=== PATIENT | female | born 1940 | race Caucasian/White ===

== ENCOUNTER 2018-10-09 09:20 | Emergency (ER) | payer MEDICARE ==
[2018-10-09 09:34] VITALS: BP 172/77
--- NOTE | 2018-10-09 09:54 | UC ---
Abdominal Pain Female HPI - HPI Summary HPI Summary: 78 year old female who has had upper abdominal pain over the past 24 hours with dry heaves, no diarrhea. Patient is an insulin-dependent diabetic. The daughter has not been checking her blood sugar because she ran out of test strips. The patient does appear to be mildly short of breath however the daughter states that is normal for her and is no worse. She has not been eating or drinking today. - History of Current Complaint Chief Complaint: UCAbdominalPain Stated Complaint: CONGESTION Time Seen by Provider: 10/09/18 09:45 Hx Obtained From: Patient, Family/Recycle Coordinator Hx From Patient Unobtainable Due To: Other - Patient is hard of hearing ?: No Onset/Duration: Gradual Onset Timing: Constant Severity Initially: Moderate Severity Currently: Moderate Pain Intensity: 5 Location: Other - Across upper abdomen. Radiates: No Character: Aching Aggravating Factor(s): Movement Alleviating Factor(s): Nothing Associated Signs and Symptoms: Positive: Cough, Nausea, Other: - Dry heaves over the past 24 hours. - Risk Factors Ectopic Risk Factor: Negative Ovarian Torsion Risk Factor: Negative Allergies/Adverse Reactions: Allergies Allergy/AdvReac Type Severity Reaction Status Date / Time amino acids [From Chromimin] Allergy Rash And Verified 10/09/18 10:19 Itching chromium Allergy Rash And Verified 10/09/18 10:19 Itching latex Allergy Unknown Verified 10/09/18 10:19 Reaction Details nickel Allergy Rash And Verified 10/09/18 10:19 Itching titanium Allergy Rash And Verified 10/09/18 10:19 Itching PMH/Surg Hx/FS Hx/Imm Hx Previously Healthy: No Endocrine History: Diabetes Cardiovascular History: Cardiac Disease, Hypertension, Other - Cardiac stents Respiratory History: COPD Other History Of: Negative For: Anticoagulant Therapy - Surgical History Surgical History: Yes Surgery Procedure, Year, and Place: LUMPECTOMY LEFT 2012 - Social History Occupation: Retired Alcohol Use: None Substance Use Type: None Smoking Status (MU): Never Smoked Tobacco Have You Smoked in the Last Year: No - Immunization History Most Recent Influenza Vaccination: fall 2014 Most Recent Tetanus Shot: unk Most Recent Pneumonia Vaccination: within last 10 years Review of Systems All Other Systems Reviewed And Are Negative: Yes Respiratory: Positive: Shortness Of Breath, Cough - Nonproductive cough Cardiovascular: Positive: Negative Gastrointestinal: Positive: Abdominal Pain, Nausea, Other - Dry heaves, the abdominal pain is in the upper abdomen it started in the past 24 hours. The pain has not moved from the upper abdomen. Genitourinary: Positive: Negative Motor: Positive: Negative Neurovascular: Positive: Negative Musculoskeletal: Positive: Negative Neurological: Positive: Negative Psychological: Positive: Negative Is Patient Immunocompromised?: No Physical Exam Triage Information Reviewed: Yes Appearance: Well-Nourished, Ill-Appearing - The ill-appearing, when she moves to get up on the exam table or down she has increased abdominal pain. Vital Signs: Initial Vital Signs Temp 97.8 F 10/09/18 09:31 Pulse 86 10/09/18 09:31 Resp 16 10/09/18 09:31 BP 172/77 10/09/18 09:31 Pulse Ox 96 10/09/18 09:31 Vital Signs Reviewed: Yes Eye Exam: Normal ENT: Positive: TMs normal, Uvula midline, Other - Mucus membranes are somewhat tacky and dry, hard of hearing Neck exam: Normal Neck: Positive: Supple, Nontender, No Lymphadenopathy Respiratory: Positive: Lungs clear, Normal breath sounds - Patient has mildly congested respirations and increased however the daughter states this is normal for her and is no worse than her normal breathing. Cardiovascular: Positive: RRR, No Murmur, Pulses Normal, Brisk Capillary Refill Abdomen Description: Positive: Soft, Guarding, Other: - Abdominal tenderness on palpation upper abdomen mild guarding. Bowel Sounds: Positive: Present, Hyperactive Musculoskeletal: Positive: Edema @ - Pedal edema present Neurological: Positive: Alert, Muscle Tone Normal Psychological Exam: Normal Psychological: Positive: Normal Response To Family Skin Exam: Normal Abd Pain Female Course/Dx - Course Course Of Treatment: This 78-year-old insulin dependent diabetic female with abdominal pain, dry heaves and some difficulty breathing (however the daughter states the breathing is normal for her and no worse than normal) and mucous membranes appear mildly dehydrated, I think it's important for the patient to be evaluated in the emergency room and I suggested this to the daughter. Patient is stable and can go by private car however I did offer the ambulance and the daughter would prefer to take her by private car. Daughter states that she cannot afford the ambulance ride to the hospital. She was wheeled to the car by wheelchair and the daughter was encouraged to take her to the ER. - Differential Dx/Diagnosis Provider Diagnosis: Abdominal pain Discharge - Sign-Out/Discharge Documenting (check all that apply): Patient Departure All imaging exams completed and their final reports reviewed: No Studies - Discharge Plan Condition: Fair Disposition: HOME-RECOMMEND TO ED Referrals: Artie Escalante MD [Primary Care Provider] - Additional Instructions: It is recommended that you go to the emergency room for further evaluation and treatment because some services are not available at this location. - Billing Disposition and Condition Condition: FAIR Disposition: Home-Recommend to ED - Attestation Statements Provider Attestation: I was available for consult. This patient was seen by the CAROLYN. The patient was not presented to , seen by or examined by la -Justin Feliciano MD
== END 2018-10-09 09:59 | disposition home health service (06) ==
LOC: UCEAST 09:20
DX: R10.9 Unspecified abdominal pain (principal); I10 Essential (primary) hypertension; E11.9 Type 2 diabetes mellitus without complications; J44.9 Chronic obstructive pulmonary disease, unspecified; Z95.5 Presence of coronary angioplasty implant and graft; Z88.8 Allergy status to other drugs, medicaments and biological substances; Z91.040 Latex allergy status
CPT/HCPCS: 99212; G0463

== ENCOUNTER 2018-10-09 10:15 | Observation (INO) | payer MEDICARE ==
[2018-10-09] MEDS ORDERED: Al Hydrox/Mg Hydrox/Simet LIQ* 30 ML UDC PO ONE (11:34)
[2018-10-09] MEDS ORDERED: Lidocaine 2% VISCOUS* 15 ML UDC PO ONE (11:34)
--- NOTE | 2018-10-09 11:41 | ED ---
Shortness of Breath - HPI Summary HPI Summary: The patient is a 78 y/o F presenting to [facility] accompanied by daughter from Urgent Care with a chief complaint of gradual onset increased SOB and cough associated with diffuse abd pain, dry heaving, and decreased appetite for the last three days. The cough had been productive at first with white phlegm, but it has become a dry cough more recently. She additionally reports increased lethargy. She denies fever, chills, erythema of eyes, sore throat, CP, N/V, diarrhea, dysuria, hematuria, myalgia, edema, rash, or dizziness. She's been around family members who have been recently diagnosed with the stomach bug. No gallbladder or pancreatic hx. She does not use O2 at home. She sleeps with two pillows at night. - History of Current Complaint Chief Complaint: EDShortnessOfBreath Time Seen by Provider: 10/09/18 11:15 Hx Obtained From: Patient Onset/Duration: Gradual Onset, Lasting Days - three, Still Present Timing: Constant Current Severity: Moderate Aggrevating Factors: Nothing Alleviating Factors: Nothing Associated Signs & Symptoms: Cough (Nonproductive) - Allergy/Home Medications Allergies/Adverse Reactions: Allergies Allergy/AdvReac Type Severity Reaction Status Date / Time amino acids [From Chromimin] Allergy Rash And Verified 10/09/18 10:19 Itching chromium Allergy Rash And Verified 10/09/18 10:19 Itching latex Allergy Unknown Verified 10/09/18 10:19 Reaction Details nickel Allergy Rash And Verified 10/09/18 10:19 Itching titanium Allergy Rash And Verified 10/09/18 10:19 Itching PMH/Surg Hx/FS Hx/Imm Hx Endocrine/Hematology History: Reports: Hx Diabetes Denies: Hx Anticoagulant Therapy, Hx Thyroid Disease Cardiovascular History: Reports: Hx Angina, Hx Coronary Artery Disease - STENTS , Hx Hypercholesterolemia, Hx Hypertension Denies: Hx Pacemaker/ICD Respiratory History: Denies: Hx Asthma, Hx Chronic Obstructive Pulmonary Disease (COPD) GI History: Denies: Hx Ulcer History: Denies: Hx Renal Disease Musculoskeletal History: Denies: Hx Osteoporosis Neurological History: Denies: Hx Dementia, Hx Seizures Psychiatric History: Denies: Hx Substance Abuse - Cancer History Cancer Type, Location and Year: brst ca Hx Chemotherapy: No Hx Radiation Therapy: Yes - Surgical History Surgery Procedure, Year, and Place: LUMPECTOMY LEFT 2012 Hx Anesthesia Reactions: No Infectious Disease History: No Infectious Disease History: Denies: Hx Hepatitis, Hx Human Immunodeficiency Virus (HIV), Traveled Outside the [place] in Last 30 Days - Family History Known Family History: Positive: Diabetes - Social History Alcohol Use: None Hx Substance Use: No Substance Use Type: Reports: None Hx Tobacco Use: No - exposure in the house Smoking Status (MU): Never Smoked Tobacco Have You Smoked in the Last Year: No Review of Systems Negative: Fever, Chills Negative: Sore Throat Negative: Chest Pain Positive: Shortness Of Breath, Cough - productive at first with whiteish phlegm but has been nonproductive the last two days Positive: Abdominal Pain - diffuse, Other - dry heaving, decreased appetite. Negative: Vomiting, Diarrhea, Nausea Negative: dysuria, hematuria Negative: Myalgia, Edema Negative: Rash Neurological: Other - NEGATIVE: dizziness All Other Systems Reviewed And Are Negative: Yes Physical Exam - Summary Physical Exam Summary: Constitutional: Ill-appearing, Well-developed, Well-nourished, Alert. (-) Distressed Skin: Warm, Dry HENT: Normocephalic; Atraumatic Eyes: Conjunctiva normal Neck: Musculoskeletal ROM normal neck. (-) JVD, (-) Stridor, (-) Tracheal deviation Cardio: Rhythm regular, rate normal, Heart sounds normal; Intact distal pulses; The pedal pulses are 2+ and symmetric. Radial pulses are 2+ and symmetric. (-) Murmur Pulmonary/Chest wall: Effort normal. (-) Respiratory distress, (-) Wheezes, (-) Rales Abd: Soft, (-) tenderness, (-) Distension, (-) Guarding, (-) Rebound Musculoskeletal: (-) Edema Lymph: (-) Cervical adenopathy Neuro: Alert, Oriented x3 Psych: Mood and affect Normal Triage Information Reviewed: Yes Vital Signs On Initial Exam: Initial Vitals Temp Pulse Resp BP Pulse Ox 99.1 F 80 22 151/75 98 10/09/18 10:19 10/09/18 10:19 10/09/18 10:19 10/09/18 10:19 10/09/18 10:19 Vital Signs Reviewed: Yes Diagnostics - Vital Signs Vital Signs Temp Pulse Resp BP Pulse Ox 10/09/18 11:20 85 32 137/68 93 10/09/18 11:03 81 32 93 10/09/18 10:19 99.1 F 80 22 151/75 98 - Laboratory Result Diagrams: 10/09/18 11:44 10/09/18 11:44 Lab Statement: Any lab studies that have been ordered have been reviewed, and results considered in the medical decision making process. - Radiology CXR Radiology Interpretation Completed By: Radiologist Summary of Radiographic Findings: 1. Elevated lung volumes suggest potential obstructive lung disease. 2. Mild cardiomegaly without gross change. 3. No acute cardiopulmonary process evident. ED physician has reviewed this report. - EKG 10:30 Cardiac Rate: NL - 83 BPM EKG Rhythm: Sinus Rhythm Summary of EKG Findings: RBBB. Re-Evaluation - Re-Evaluation First Eval Re-Evaluation Time: 13:00 Comment: I discussed lab and imaging results with the patient. We also discussed admission to the hospital. Course/Dx - Course Course Of Treatment: I reviewed the patients note from Urgent Care. The patient is a 78 y/o F accompanied by daughter with a chief complaint of increased SOB and cough associated with diffuse abd pain, dry heaving, and decreased appetite for the last three days. The cough was productive at first with white phlegm, but it is now nonproductive. She additionally reports increased lethargy. She denies fever, chills, CP, N/V, diarrhea, and edema. She' s been around family members who've been recently diagnosed with the stomach bug. She does not use O2 at home. Upon physical exam, the patient is ill- appearing. In the ED course, the patient was administered Aspirin, Maalox/ Lidocaine. Blood work reveals decreased WBC, PLT Count, abs lymphs, and elevated creatinine, BUN/Creatinine, AST, troponin of 0.06, and BNP of 588. Serology shows positive influenza A. EKG reveals RBBB. CXR reveals elevated lung volumes suggesting potential obstructive lung disease, and cardiomegaly, but otherwise normal. I consulted Dr. Joe, hospitalist, at 12:50 concerning patients lab and imaging results; he accepts the patient for admission at this time. The patient is diagnosed with influenza A. epigastric pain, and elevated troponin. She agrees with and understands the need for admission to the hospital. - Diagnoses Provider Diagnoses: Influenza A, Elevated troponin, Epigastric abdominal pain - Physician Notifications Discussed Care of Patient With: Primitivo Joe - hospitalist Time Discussed With Above Provider: 12:50 Instructed by Provider To: Other - I spoke with Dr. Joe concerning lab and imaging results; he accepts the patient for admission. Discharge - Sign-Out/Discharge Documenting (check all that apply): Patient Departure - Patient will be [facility] for further care by Dr. Joe. Patient Received Moderate/Deep Sedation with Procedure: No - Discharge Plan Condition: Stable Disposition: ADMITTED TO [facility] - Billing Disposition and Condition Condition: STABLE Disposition: Admitted to [facility] - Attestation Statements Document Initiated by Scribe: Yes Documenting Scribe: Sultana Barreto Provider For Whom Tata is Documenting (Include Credential): Dr. Kapil Arriaga MD Scribe Attestation: Sultana Friedman scribed for Dr. Kapil Arriaga MD on 10/10/18 at 1054. Scribe Documentation Reviewed: Yes Provider Attestation: The documentation as recorded by the Sultana rick accurately reflects the service I personally performed and the decisions made by me, Dr. Kapil Arriaga MD Status of Scribe Document: Viewed
[2018-10-09 12:01] LABS: ABS Basophils 0 10^3/ul (0-0.2); ABS Eosinophils 0 10^3/ul (0-0.6); ABS Lymphocytes 0.4 10^3/ul (1.0-4.8); ABS Monocytes 0.3 10^3/ul (0-0.8); ABS Neutrophils 2.2 10^3/ul (1.5-7.7); ABS Nucleated RBC 0 10^3/ul; Eosinophil % 0.1 %; Hematocrit 37 % (33-41); Hemoglobin 12.4 g/dL (12.0-16.0); Lymphocyte % 14.7 %; Mean Corpuscular HGB Conc 34 g/dL (31-36); Mean Corpuscular Hemoglobin 29 pg (27-31); Mean Corpuscular Volume 84 fL (80-97); Mean Platelet Volume 8.2 fL (7.4-10.4); Nucleated Red Blood Cells % 0.2; Platelet Count 140 10^3/uL (150-450); Red Blood Count 4.37 10^6 /uL (3.70-4.87); Red Cell Distribution Width 15 % (10.5-15)
[2018-10-09 12:17] LABS: ALT 28 U/L (7-52); AST 51 U/L (13-39); Albumin/Globulin Ratio 1.3 (1-3); Alkaline Phosphatase 68 U/L (34-104); Anion Gap 8 mmol/L (2-11); BUN/Creatinine Ratio 23.5 (8-20); Blood Urea Nitrogen 24 mg/dL (6-24); CO2 Carbon Dioxide 26 mmol/L (22-32); Calcium 9.6 mg/dL (8.6-10.3); Chloride 106 mmol/L (101-111); EGFR African American 63.8 (>60); EGFR Non-African American 52.7 (>60); Glucose 94 mg/dL (70-100); Potassium 3.7 mmol/L (3.5-5.0); Sodium 140 mmol/L (135-145)
[2018-10-09 12:22] LABS: Troponin I 0.06 ng/mL (<0.04)
[2018-10-09] MEDS ORDERED: Aspirin 81 mg CHEW TAB* 81 MG TAB.CHEW PO ONE (12:53)
[2018-10-09 13:00] LABS: Influenza A Molecular POSITIVE (Negative)
[2018-10-09] MEDS ORDERED: Dextrose 50% Syringe 50 ML* 25 GM/50 ML SYRINGE IV PUSH PRN (15:35)
[2018-10-09] MEDS ORDERED: Enoxaparin(*) 30 MG/0.3 ML SYR SUBCUT SCH (16:00)
[2018-10-09] MEDS ORDERED: Insulin GLARGINE(*) 1 UNITS UNIT SUBCUT SCH (16:00)
[2018-10-09 16:20] LABS: Amylase 61 U/L (29-103)
--- NOTE | 2018-10-09 17:18 | HP ---
ADMITTING HISTORY AND PHYSICAL: DATE OF ADMISSION: 10/09/18 CHIEF COMPLAINT: Epigastric pain. HISTORY OF PRESENT ILLNESS: The patient is a 78-year-old lady with history of breast cancer, now in remission, coronary artery disease status post stent placement back in 1998 in [place], who is accompanied by her 2 daughters at bedside who mentioned that she had been having some shortness of breath and cough for the last 2 days. She also mentions that her grandson was sick because "he caught a bug." A few hours prior to admission, she began having some epigastric pain, which led to patient being brought to the ED for further evaluation, at which point, she was found to be positive for influenza A. PAST MEDICAL AND SURGICAL HISTORY: History of coronary artery disease; has a history of breast cancer, now in remission; diabetes mellitus; hypertension. No documented nor claimed surgeries in the past. ALLERGIES: The patient's daughter claims LATEX allergy, but reaction is unknown. SOCIAL HISTORY: The patient lives with her daughter and does not have any history of smoking or alcohol or illicit drug use. Her daughter's name and also point of contact will be Silvia Tejada, phone [phone]. REVIEW OF SYSTEMS: Mildly increased shortness of breath, cough of greenish sputum, and epigastric pain. As discussed, denied any headaches, dizziness, fevers, chills, nausea, vomiting, chest pain, shortness of breath, increased cough and/or sputum production, abdominal pain, diarrhea, constipation, pain and /or increased frequency in urination, myalgias, arthralgias, throat pain, or new skin lesions. The rest of the 14-point review of systems other than what was described are otherwise unremarkable. PHYSICAL EXAMINATION GENERAL: The patient is awake, appears ill, obese. VITAL SIGNS: Reveals the most recent vitals signs of records with blood pressure of 166/77; 83 beats per minute heart rate; 36 per minute respiratory rate, from 24 and 32; 92% saturation on room air. HEENT: Normocephalic, atraumatic. PERRLA. Extraocular muscles intact. Negative for icterus. Moist oral mucosa. Negative throat erythema. NECK: Soft, supple with no cervical lymphadenopathy. No JVD. CHEST: Clear to auscultation bilaterally. Good air entry. No wheezes, rales, or rhonchi. HEART: S1, S2 within normal limits. Regular rate and rhythm. No murmurs, rubs , or gallops. ABDOMEN: Soft, nondistended, nontender. Normoactive bowel sounds x4 quadrants. EXTREMITIES: No cyanosis or clubbing. Difficult to assess bilateral lower extremity edema given patient's obesity. PSYCHIATRIC: No active psychosis, depression, suicidal or homicidal ideation. SKIN: Warm to touch. DIAGNOSTIC STUDIES/LAB DATA: Chest x-ray shows no acute disease. EKG shows 83 beats per minute with a rhythm of right bundle branch block. ASSESSMENT AND PLAN: The patient is a 78-year-old lady with a history of diabetes mellitus, hypertension, and coronary artery disease, being admitted for influenza. 1. Influenza A. The patient has been positive for influenza A screen and likely the cause of shortness of breath, cough, and epigastric symptoms. However, since she takes ibuprofen almost daily, we will also obtain H. pylori stool antigen test and we will continue watchful waiting. Certainly, this could be due to some form of gastritis or PUD. We will place patient on Maalox Plus as well as PPI and will check stool antigen for H. pylori. We will place patient on Tamiflu for 5 days total. 2. Epigastric pain. Please see above discussion. We will place patient on Maalox and pantoprazole. We will also check amylase, lipase, but I doubt that this is pancreatitis. 3. Elevated troponin, likely secondary to demand ischemia from above. We will order echocardiogram in a.m. and we will continue to trend troponins. 4. Hypertension. We will place patient on amlodipine, lisinopril, and metoprolol. 5. Coronary artery disease. Continue aspirin, lisinopril, metoprolol, and atorvastatin. 6. DVT prophylaxis. Place patient on 30 mg subcu of Lovenox. 7. Disposition. As above. [id number]/[facility] #: [id number] [facility]
[2018-10-09] MEDS: Metoprolol Tartrate TAB* 25 MG PO SCH (18:08)
[2018-10-09] MEDS: Insulin LISPRO* 1 UNITS UNIT SUBCUT SCH ×3 (18:09→21:01)
[2018-10-09] MEDS ORDERED: Albuterol/Ipratropium NEB.SOL* Albuterol 2.5 MG/Ipratropium 0.5 MG 3 ML INH PRN (18:48)
[2018-10-09] MEDS ORDERED: Albuterol/Ipratropium NEB.SOL* Albuterol 2.5 MG/Ipratropium 0.5 MG 3 ML INH SCH (19:00)
[2018-10-09] MEDS: Oseltamivir CAP* 30 MG CAP PO SCH ×2 (19:40→20:55)
[2018-10-09] MEDS ORDERED: Acetaminophen TAB* 325 MG PO PRN (19:53)
[2018-10-09 20:07] LABS: Troponin I 0.07 ng/mL (<0.04)
[2018-10-09] MEDS: Docusate CAP* 100 MG PO SCH (20:54)
[2018-10-09] MEDS: amLODIPine TAB* 5 MG PO SCH (20:54)
[2018-10-09] MEDS ORDERED: Lisinopril TAB* 10 MG PO SCH (21:00)
[2018-10-09 22:57] LABS: Troponin I 0.07 ng/mL (<0.04)
[2018-10-10] MEDS: Metoprolol Tartrate TAB* 25 MG PO SCH ×2 (00:03→11:41)
[2018-10-10 07:00] LABS: Troponin I 0.06 ng/mL (<0.04)
[2018-10-10] MEDS: Insulin LISPRO* 1 UNITS UNIT SUBCUT SCH ×4 (08:33→13:33)
[2018-10-10] MEDS ORDERED: Isosorbide Mononitrate ER TAB* 30 MG PO SCH (09:00)
[2018-10-10] MEDS ORDERED: Atorvastatin* 20 MG TAB PO SCH (09:00)
[2018-10-10] MEDS ORDERED: Aspirin 81 mg CHEW TAB* 81 MG TAB.CHEW PO SCH (09:00)
[2018-10-10] MEDS ORDERED: Lisinopril TAB* 10 MG PO SCH (09:00)
[2018-10-10] MEDS ORDERED: Pantoprazole TAB * 40 MG TAB PO SCH (09:00)
[2018-10-10] MEDS ORDERED: CMCS:Anastrozole (NF) 1 MG TAB PO SCH (09:00)
--- NOTE | 2018-10-10 09:12 | ECHO ---
Patient: HENRY BRAUN [facility] Rec#: [id number] : 1940 Date: 10/10/2018 Age: 78y Height: 155 cm / 61.0 in Weight: 68 kg / 149.9 lbs Sex: F BSA: 1.67 Room#: 452 Admit Date#: 10/09/2018 Type: Inpatient Referring: Primitivo Joe Reading: Mack Santana MD Bike Mechanic: Samreen [place],REGULOCS,RDMS CC: Artie Escalante MD Transthoracic Echocardiogram Indication: SOB, Elevated TROP BP: 140/54 HR: 52 Rhythm: Bradycardia Findings History: CAD, PCI, HTN, HLD, DM, Left Ventricle: The left ventricular chamber size is normal. Moderate concentric left ventricular hypertrophy is observed. There is a focal wall motion abnormality present. There is mildly decreased left ventricular systolic function. The estimated ejection fraction is 40-45%. Abnormal left ventricular diastolic function is observed. The apical inferior wall segment is hypokinetic (score 2). The apical septal, and apical anterior wall segments are akinetic (score 3). Overall wallmotion score index is 2.67 Left Atrium: The left atrium is moderately dilated. Right Ventricle: The right ventricular chamber size and systolic function are within normal limits. The right ventricle wall thickness is mildly increased. Right Atrium: The right atrial cavity size is normal. Aortic Valve: The aortic valve leaflets are mildly thickened. Systolic excursion of the aortic valve is normal. There is no evidence of aortic regurgitation. There is no evidence of aortic stenosis. Mitral Valve: There is mitral annular calcification. Mild mitral leaflet calcification is visualized. There is trace to mild mitral regurgitation. There is no evidence of mitral stenosis. Tricuspid Valve: The tricuspid valve leaflets are normal. There is trace tricuspid regurgitation. Unable to estimate the right ventricular systolic pressure. Pulmonic Valve: The pulmonic valve structure is not well visualized. There is no evidence of pulmonic regurgitation. Pericardium: There is no significant pericardial effusion. A pericardial fat pad is visualized. Aorta: The aortic root appears normal. The aortic arch is not well visualized. Pulmonary Artery: The main pulmonary artery is not well visualized. Venous: There is an approximate 50% respiratory change in the inferior vena cava dimension. Summary: There are no significant changes when compared to the previous study done on 12/08/15 Conclusions Moderate concentric left ventricular hypertrophy is observed. There is a focal wall motion abnormality present. There is mildly decreased left ventricular systolic function. The estimated ejection fraction is 40-45%. The apical inferior wall segment is hypokinetic (score 2). The apical septal, and apical anterior wall segments are akinetic (score 3). The right ventricular chamber size and systolic function are within normal limits. There is no evidence of aortic stenosis. There is trace to mild mitral regurgitation. There is trace tricuspid regurgitation. Unable to estimate the right ventricular systolic pressure. There is no significant pericardial effusion. There are no significant changes when compared to the previous study done on 12/08/15 Measurements Name Value Normal Range RVIDd (AP) 2D 1.4 cm (0.9 - 2.6) RVDdMajor (2D) 2.6 cm (2.2 - 4.4) RAd ISD 4CH 4.9 cm (3.4 - 4.9) RA (A4C)W 3.4 cm (2.9 - 4.6) IVSd (2D) 1.3 cm (0.6 - 1) LVPWd (2D) 1.5 cm (0.6 - 1) LVIDd (2D) 4.7 cm (3.6 - 5.4) LVIDs (2D) 2.8 cm - LV FS (2D) 41 % (25 - 45) Aortic Annulus 2 cm (1.4 - 2.6) Ao root diameter (2D) 2.5 cm (2.1 - 3.5) Ascending Ao 3 cm (2.1 - 3.4) LA dimension (AP) 2D 3.5 cm (2.3 - 3.8) LAd ISD 4CH 5.2 cm (2.9 - 5.3) LA ISD 4CH W 5 cm (2.5 - 4.5) Name Value Normal Range LA ESV BP (A/L) index 42 ml/m2 - Name Value Normal Range MV E-wave Vmax 1.1 m/sec - MV deceleration time 211 msec - MV A-wave Vmax 0.9 m/sec - MV E:A ratio 1.2 ratio - P. vein S-wave Vmax 0.6 m/sec - P. vein D-wave Vmax 0.7 m/sec - P. vein S:D Vmax ratio 1 ratio - P. vein A-wave duration 114 msec - LV septal e' Vmax 0.07 m/sec - LV lateral e' Vmax 0.07 m/sec - LV E:e' septal ratio 16 ratio - LV E:e' lateral ratio 16 ratio - Name Value Normal Range AV Vmax 1.7 m/sec - AV VTI 42 cm - AV peak gradient 12 mmHg - AV mean gradient 6 mmHg - LVOT Vmax 1.1 m/sec - LVOT VTI 23 cm - LVOT peak gradient 5 mmHg - LVOT mean gradient 2 mmHg - Name Value Normal Range MV Vmax 1.2 m/sec - MV VTI 53 cm - MV peak gradient 6 mmHg - MV mean gradient 2 mmHg - MV PHT 95 msec - MVA (PHT) 2.3 cm2 - Name Value Normal Range RAP 8 mmHg - IVC diameter 1.9 cm - Name Value Normal Range PV Vmax 0.9 m/sec - PV peak gradient 3.2 mmHg - Wallmotion BAS Not Seen BA Not Seen BAL Not Seen MARILYN Not Seen BI Not Seen BIS Not Seen MAS Not Seen MA Not Seen MAL Not Seen MIL Not Seen TN Not Seen MIS Not Seen Akinetic AA Akinetic AL Not Seen AI Hypokinetic APEX Hypokinetic
[2018-10-10 10:22] VITALS: BP 148/56
[2018-10-10] MEDS: Docusate CAP* 100 MG PO SCH (10:33)
[2018-10-10] MEDS: amLODIPine TAB* 5 MG PO SCH (10:33)
[2018-10-10] MEDS: Oseltamivir CAP* 30 MG CAP PO SCH (10:34)
--- NOTE | 2018-10-10 23:35 | DS ---
CC: Dr. Escalante * DISCHARGE SUMMARY: DATE OF ADMISSION: 10/09/18 DATE OF DISCHARGE: 10/10/18 PRIMARY CARE PROVIDER: Dr. Escalante. DISPOSITION ON DISCHARGE: Home. CONDITION ON DISCHARGE: Improved. PRIMARY DIAGNOSIS: Influenza A. SECONDARY DIAGNOSES: Include: 1. Insulin-dependent type 2 diabetes mellitus. 2. Coronary artery disease. 3. Bradycardia. MEDICATIONS ON DISCHARGE: Include: 1. Amlodipine 5 mg twice daily. 2. Vitamin D 400 units daily. 3. Multivitamin 1 tab daily. 4. Lisinopril 10 mg in the evening and 15 mg in the morning. 5. Imdur 30 mg daily. 6. Lispro sliding scale per home sliding scale on 5 units with meals. 7. Lasix 20 mg daily. 8. Docusate 100 mg twice daily. 9. Atorvastatin 20 mg daily. 10. Aspirin 81 mg daily. 11. Anastrozole 1 mg daily. 12. Oseltamivir 30 mg twice daily, renally dose for 4 additional days. 13. Metoprolol tartrate 25 mg daily. Please note decrease in total daily dose insulin glargine 13 units daily, please note decrease in dose from 15 to 13. HISTORY OF PRESENT ILLNESS AND HOSPITAL COURSE: A 78-year-old female with past medical history as outlined in the history of present illness, day of admission presented with increased shortness of breath, was found with influenza A. Incidentally, her grandson and all of his family had been sick the week prior, most probably with influenza. The patient was short of breath on presentation, was admitted to the hospital for observation overnight and she improved greatly on Tamiflu as well as time. She was on room air on the day of discharge, ambulating her usual distance. Of note, she was bradycardic through most of the hospital stay. Two of her 3 daily doses of metoprolol were held and her total daily dose was decreased from 75 to 25 mg metoprolol at the time of discharge. Additionally, her morning fasting glucose is 67 and her total glargine dose was decreased by 2 at the time of discharge. The patient had an elevated troponin, which was stable, peaked at 0.07. Transthoracic echocardiogram was performed, notable for no changes from previous study in November 2015 with an estimated LVEF of 40% to 45%. At followup please; 1. Evaluate for continued improvement. 2. Adjust Lantus as necessary. As noted above, total daily dose decreased by 2 units. 3. Adjust beta-sherlyn as needed. Please note as above. Metoprolol tartrate was decreased from 25 mg 3 times a day to 25 mg daily. 4. No other specific labs or vitals that are pending at the time of discharge. Reasons to return to the hospital including, but not limited to recurrent worsening symptoms, chest pain, shortness of breath, nausea, vomiting, lightheadedness, loss of consciousness, bleeding from any source, or inability to obtain or tolerate her medications discussed with the patient. She acknowledged understanding. TIME SPENT: Greater than 45 minutes were spent on the discharge of this patient , greater than half was spent [id number] with the patient. [id number]/[facility] #: [id number] [place]
== END 2018-10-10 13:40 | disposition home or self-care (01) ==
LOC: ED 10:15 → INTOOBSV 15:21 → MEDTELE 15:21
PROVIDERS: ADMIT Student in an Organized Health Care Education/Training Program; ATTEND Internal Medicine
DX: J11.1 Influenza due to unidentified influenza virus with other respiratory manifestations (principal); E11.9 Type 2 diabetes mellitus without complications; Z79.4 Long term (current) use of insulin; I25.10 Atherosclerotic heart disease of native coronary artery without angina pectoris; R00.1 Bradycardia, unspecified; Z79.82 Long term (current) use of aspirin; R10.13 Epigastric pain; I10 Essential (primary) hypertension; Z85.3 Personal history of malignant neoplasm of breast; R05 Cough
CPT/HCPCS: 36415; 71045; 80053; 82150; 83605; 83690; 83880; 84484; 85025; 87040; 93005; 93306; 96372; 99283; A9270-GY; G0378; J1650